=== PATIENT | female | born 1990 | race Caucasian/White ===

== ENCOUNTER 2017-06-19 10:05 | Emergency (ER) | payer MEDICAID, OTHER ==
[2017-06-19 10:05] VITALS: BMI 27.6
[2017-06-19] MEDS: Sodium Chloride 0.9% 1,000 ML IV SCH (12:24)
[2017-06-19 12:37] LABS: SQUAMOUS EPITHIAL 2 /hpf (0-5); URINE BACTERIA RARE (<OCC); URINE BILIRUBIN NEGATIVE (NEGATIVE); URINE BLOOD SMALL (NEGATIVE); URINE CLARITY CLEAR (Clear); URINE COLOR STRAW (YELLOW); URINE GLUCOSE (UA) NEG (Normal); URINE LEUKOCYTE ESTERASE NEG Leu/uL (Negative); URINE PROTEIN NEGATIVE (NEGATIVE); URINE UROBILINOGEN 0.2-1.0 mg/dL (0.2-1.0)
--- NOTE | 2017-06-19 12:56 | ED PDOC ---
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 Patient describes the pain as strong sharp shooting sensation. Patient denies any fever, chills, recent travel, vaginal bleeding or discharge, cough, shortness of breath or congestion. No further medical complaints. Last menstrual period on April 2017, currently receiving depo shots. PMD: [facility]. Abnormal Vaginal Bleeding: No Last Menstral Period: April 2017 Past Medical History Reviewed: Historical Data, Nursing Documentation, Vital Signs Vital Signs: Last Vital Signs Temp 98.2 F 06/19/17 19:49 Pulse 83 06/19/17 19:49 Resp 18 06/19/17 19:49 BP 139/71 06/19/17 19:49 Pulse Ox 100 06/19/17 19:49 - Medical History PMH: No Chronic Diseases - Surgical History Surgical History: (x2) - Family History Family History: States: No Known Family Hx - Home Medications Home Medications: Ambulatory Orders Medication Instructions Recorded Acetaminophen with Codeine 2 tab PO Q4H PRN #22 tab 07/23/14 [Tylenol with Codeine No. 3 300 mg-30 mg] Naproxen 500 mg PO BID PRN #20 tab 06/19/17 - Allergies Allergies/Adverse Reactions: Allergies Allergy/AdvReac Type Severity Reaction Status Date / Time No Known Allergies Allergy Unverified 10/15/14 19:28 Review of Systems ROS Statement: Except As Marked, All Systems Reviewed And Found Negative Constitutional: Negative for: Fever, Chills ENT: Negative for: Nose Congestion Respiratory: Negative for: Cough, Shortness of Breath Gastrointestinal: Positive for: Abdominal Pain (suprapubic and RLQ) Genitourinary Female: Negative for: Vaginal Discharge, Vaginal Bleeding Physical Exam - Reviewed Nursing Documentation Reviewed: Yes Vital Signs Reviewed: Yes - Physical Exam Appears: Positive for: Non-toxic, No Acute Distress, Uncomfortable Head Exam: Positive for: ATRAUMATIC, NORMOCEPHALIC Skin: Positive for: Normal Color, Warm, Dry Eye Exam: Positive for: EOMI, PERRL ENT: Positive for: Other (Mucus membranes moist.) Neck: Positive for: Painless ROM, Supple Cardiovascular/Chest: Positive for: Regular Rate, Rhythm Respiratory: Positive for: Normal Breath Sounds. Negative for: Decreased Breath Sounds, Accessory Muscle Use, Wheezing, Respiratory Distress Gastrointestinal/Abdominal: Positive for: Tenderness (suprapubic). Negative for : Distended, Guarding, Rebound Back: Positive for: Normal Inspection. Negative for: L CVA Tenderness, R CVA Tenderness Extremity: Positive for: Normal ROM (upper and lower extremities). Negative for : Deformity Neurologic/Psych: Positive for: Alert, Oriented (x3), Gait (steady in ED). Negative for: Motor/Sensory Deficits - Laboratory Results Result Diagrams: 06/19/17 12:50 06/19/17 12:50 Urine POC: Negative - ECG O2 Sat by Pulse Oximetry: 98 (RA) Pulse Ox Interpretation: Normal Medical Decision Making Medical Decision Making: Initial Impression: Abdominal pain Initial Plan: --CMP --Lipase --Urine --CBC w/ differential --Pepcid 40 mg IVP --Toradol 30 mg IVP --Sodium Chloride 1,000 ml IV 1,000 mls/hr --Urine culture --Reevaluation Labs reviewed, grossly unremarkable. On re-evaluation, patient with persistent pain to RLQ, LLQ, and suprapubic regions. CT abdomen/pelvis ordered to r/o intra-abdominal pathology. Repeat HR: 83 CT reviewed, radiology report follows PROCEDURE: CT Abdomen and Pelvis with contrast HISTORY: RLQ, LLQ abdominal pain COMPARISON: Abdomen pelvis CT exam with contrast 07/23/2014. TECHNIQUE: Contrast dose: Omnipaque 300, 90 cc Radiation dose: Total exam DLP = 562.27 mGy-cm. This CT exam was performed using one or more of the following dose reduction techniques: Automated exposure control, adjustment of the mA and/or kV according to patient size, and/or use of iterative reconstruction technique. FINDINGS: LOWER THORAX: Unremarkable. LIVER: Unremarkable. No gross lesion or ductal dilatation. GALLBLADDER AND BILE DUCTS: Unremarkable. PANCREAS: Unremarkable. No gross lesion or ductal dilatation. SPLEEN: Unremarkable. ADRENALS: Unremarkable. No mass. KIDNEYS AND URETERS: Unremarkable. No hydronephrosis. No solid mass. VASCULATURE: Unremarkable. No aortic aneurysm. BOWEL: Unremarkable. No obstruction. No gross mural thickening. APPENDIX: Normal appendix. PERITONEUM: Unremarkable. No free fluid. No free air. LYMPH NODES: Unremarkable. No enlarged lymph nodes. BLADDER: Unremarkable. REPRODUCTIVE: There is a mild amount of fluid in the endometrial cavity. There is a E lesion within the lower uterine segment/endocervical canal expanding the cervix, measuring 3.7 x 3.8 x 4.6 cm (transverse by anteroposterior by superoinferior dimensions). It may represent hematoma or soft tissue mass otherwise. This is an interval finding not seen in prior abdomen and pelvis CT with contrast 2014. The uterus otherwise unremarkable. Trace reactive changes seen in the right adnexa compartment and possibly the left also may be a function of cyst rupture but is indeterminate. No dilatation of the fallopian tubes is seen to suggest a possible early tubo-ovarian abscess. BONES: No acute fracture. OTHER FINDINGS: None. IMPRESSION: 4.6 cm lesion is seen within the endocervical canal expanding the cervix as well as a limited portion of the lower uterine segment endometrial cavity. Consider possible hematoma or soft tissue mass. Gynecological consultation recommended. Limited bilateral adnexal reactive change presumably on the basis of cyst rupture although this is a nonspecific pattern. No definitive adnexal mass or prominent cyst appreciable at this time. Patient already aware of lesion and states that she had it biopsied earlier in the year. Patient states she is scheduled for a pap in 02/2018. CT results discussed with Dr Gr, who states patient is stable for outpatient follow up. On re-evaluation, patient reports improvement of symptoms, denies any abdominal pain at this time. On exam, patient remains AAOx3, in no acute distress. Lungs clear to auscultation, cardiac RRR, abdomen soft, non-tender, repeat neuro exam shows no focal findings. VSS, stable for discharge. Lab/ Diagnostic results d/w the patient in great detail. Diagnosis of cervical mass d/w the patient. Based on history, exam and diagnostic results, plan will be for outpatient follow up. Patient instructed to follow-up with pmd / referral provided / the clinic in 1- 2 days without fail. Advised to take medication as prescribed. Return to the emergency room at any time for any new or worsening symptoms. Patient states she fully agrees with and understands discharge instructions. States that she agrees with the plan and disposition. Verbalized and repeated discharge instructions and plan. I have given the patient opportunity to ask any additional questions. Scribe Attestation: Documented by Maury Zuleta, acting as a scribe for Batool Islas PA-C Provider Scribe Attestation: All medical record entries made by the Scribe were at my direction and personally dictated by me. I have reviewed the chart and agree that the record accurately reflects my personal performance of the history, physical exam, medical decision making, and the department course for this patient. I have also personally directed, reviewed, and agree with the discharge instructions and disposition. Disposition - Clinical Impression Clinical Impression: Cervical lesion, Abdominal pain in female - Patient ED Disposition Is Patient to be Admitted: No Counseled Patient/Family Regarding: Studies Performed, Diagnosis, Need For Followup, Rx Given - Disposition Disposition: Routine/Home Disposition Time: 19:19 Condition: STABLE Additional Instructions: FOLLOW UP WITH SEAL MIXER IN 1-2 DAYS WITHOUT FAIL. RETURN TO ED WITH ANY NEW OR WORSENING SYMPTOMS. Prescriptions: Naproxen 500 mg PO BID PRN #20 tab PRN Reason: Pain, Moderate (4-7) Instructions: Cervical Dysplasia, Acute Abdomen (Belly Pain), Pap Tests Forms: [employer] ([employer]wana) Print Language: MAURITANIAN - POA Present On Arrival: None
[2017-06-19 13:01] LABS: BASO % 0.4 % (0.0-2.0); EOS # 0.1 K/uL (0.0-0.7); HEMOGLOBIN 12.3 g/dL (12.0-16.0); LYMPH # 1.4 K/uL (1.0-4.3); LYMPH % 12.4 % (20.0-40.0); MEAN CELL VOLUME 88.7 fl (81.0-99.0); MEAN CORPUSCULAR HEMOGLOBIN 28.9 pg (27.0-31.0); MEAN CORPUSCULAR HGB CONC 32.6 g/dL (33.0-37.0); MONO # 0.6 K/uL (0.0-0.8); MONO % 5.5 % (0.0-10.0); NEUT % 80.7 % (50.0-75.0); RBC 4.27 Mil/uL (3.80-5.20); RED CELL DISTRIBUTION WIDTH 14.9 % (11.5-14.5); WHITE BLOOD COUNT 11.1 K/uL (4.8-10.8)
[2017-06-19 13:27] LABS: ALT/SGPT 30 U/L (9-52); AST/SGOT 23 U/L (14-36); BLOOD UREA NITROGEN 9 mg/dl (7-17); CALCIUM 9.3 mg/dL (8.4-10.2); GFR AFRICAN-AMERICAN > 60; GFR NON-AFRICAN AMERICAN > 60; LIPASE 56 U/L (23-300)
[2017-06-19] MEDS ORDERED: Iohexol 240 (50 ml) ONE (15:04)
[2017-06-19] MEDS: Iohexol 240 (50 ml) PO ONE (15:08)
[2017-06-19] MEDS ORDERED: Sodium Chloride 0.9% 100 ML ONE (16:41)
[2017-06-19] MEDS ORDERED: Iohexol 300 100 ML IJ ONE (16:41)
--- NOTE | 2017-06-19 18:36 | CT ---
PROCEDURE: CT Abdomen and Pelvis with contrast HISTORY: RLQ, LLQ abdominal pain COMPARISON: Abdomen pelvis CT exam with contrast 07/23/2014. TECHNIQUE: Contrast dose: Omnipaque 300, 90 cc Radiation dose: Total exam DLP = 562.27 mGy-cm. This CT exam was performed using one or more of the following dose reduction techniques: Automated exposure control, adjustment of the mA and/or kV according to patient size, and/or use of iterative reconstruction technique. FINDINGS: LOWER THORAX: Unremarkable. LIVER: Unremarkable. No gross lesion or ductal dilatation. GALLBLADDER AND BILE DUCTS: Unremarkable. PANCREAS: Unremarkable. No gross lesion or ductal dilatation. SPLEEN: Unremarkable. ADRENALS: Unremarkable. No mass. KIDNEYS AND URETERS: Unremarkable. No hydronephrosis. No solid mass. VASCULATURE: Unremarkable. No aortic aneurysm. BOWEL: Unremarkable. No obstruction. No gross mural thickening. APPENDIX: Normal appendix. PERITONEUM: Unremarkable. No free fluid. No free air. LYMPH NODES: Unremarkable. No enlarged lymph nodes. BLADDER: Unremarkable. REPRODUCTIVE: There is a mild amount of fluid in the endometrial cavity. There is a E lesion within the lower uterine segment/endocervical canal expanding the cervix, measuring 3.7 x 3.8 x 4.6 cm (transverse by anteroposterior by superoinferior dimensions). It may represent hematoma or soft tissue mass otherwise. This is an interval finding not seen in prior abdomen and pelvis CT with contrast 07/23/2014. The uterus otherwise unremarkable. Trace reactive changes seen in the right adnexa compartment and possibly the left also may be a function of cyst rupture but is indeterminate. No dilatation of the fallopian tubes is seen to suggest a possible early tubo-ovarian abscess. BONES: No acute fracture. OTHER FINDINGS: None. IMPRESSION: 4.6 cm lesion is seen within the endocervical canal expanding the cervix as well as a limited portion of the lower uterine segment endometrial cavity. Consider possible hematoma or soft tissue mass. Gynecological consultation recommended. Limited bilateral adnexal reactive change presumably on the basis of cyst rupture although this is a nonspecific pattern. No definitive adnexal mass or prominent cyst appreciable at this time.
[2017-06-19 19:52] VITALS: BP 139/71; PULSE 83; RESP 18; TEMP 98.2
[2017-06-19 20:00] VITALS: O2SAT 98
== END 2017-06-19 19:52 | disposition home or self-care (01) ==
LOC: H.ER 10:05
DX: O26.899 Other specified pregnancy related conditions, unspecified trimester (principal)
CPT/HCPCS: 74177; 80053; 81003; 81025; 83690; 85025; 87086; 96374; 96375; 99284; J1885; J7040; Q9966; Q9967